=== PATIENT | male | born 1995 | race Caucasian/White ===

== ENCOUNTER 2023-08-14 17:14 | Emergency (ER) | payer SELFPAY ==
[~2023-08-14] VITALS: Ht 172.7 cm; Wt 69.9 kg
[2023-08-14 17:28] VITALS: BP 113/70; PULSE 62; RESP 18; TEMP 97.5; O2SAT 100
[2023-08-14] MEDS ORDERED: IBUP-2213 PO (18:16)
[2023-08-14 18:35] VITALS: BP 113/70; PULSE 62; RESP 18; TEMP 97.5; O2SAT 100
== END 2023-08-14 18:36 | disposition home or self-care (01) ==
LOC: MED 17:14
DX: R51.9 Headache, unspecified (principal); H93.19 Tinnitus, unspecified ear; Z79.899 Other long term (current) drug therapy
CPT/HCPCS: 99282